=== PATIENT | male | born 1950 | race Caucasian/White ===

== ENCOUNTER → 2022-04-22 | Outpatient (CLI) | payer OTHER ==
[~2022-04-22] MED LIST: CELEBREX200 MG PO; HYDROCHLOROTHIA25 MG PO; LISINOPRIL40 MG PO; LOVASTATIN40 MG PO; LOW DOSE ASPIRI81 MG PO; METFORMIN HCL500 MG PO; METOPROLOL SUC100 MG PO; NEURONTIN300 MG PO; NORCO 5-325 TA1 EACH PO; XYZAL5 MG PO
[2022-04-22 09:56] LABS: HEMOGLOBIN 14.3 gm/dl (14.0-17.5); RED BLOOD COUNT 4.88 M/UL (4.20-5.50); WHITE BLOOD COUNT 8.3 K/UL (4.5-11.0)
[2022-04-22 10:20] LABS: BUN/CREATININE RATIO 24 (0-10)
== END ==
LOC: OPSV2 08:00 → EDSTATUS 08:00 → OPSV2 08:39
PROVIDERS: Orthopaedic Surgery
DX: Z01.818 Encounter for other preprocedural examination (principal); M19.012 Primary osteoarthritis, left shoulder; I45.10 Unspecified right bundle-branch block; R94.31 Abnormal electrocardiogram [ECG] [EKG]
CPT/HCPCS: 36415; 71046; 80048; 83036; 85025; 85610; 85730; 93005

== ENCOUNTER → 2022-04-23 | Outpatient (CLI) | payer OTHER | LOC: KOH-I 08:24 | DX: Z01.818 Encounter for other preprocedural examination (principal); M19.012 Primary osteoarthritis, left shoulder | CPT/HCPCS: 73200 ==

== ENCOUNTER → 2022-05-05 | Day surgery (SDC) | payer OTHER ==
[~2022-05-05] VITALS: Ht 180.3 cm; Wt 111.6 kg
[~2022-05-05] MED LIST changes: +CYCLOBENZAPRINE10 MG PO; +OXYCODON-ACETA1 EAC1 PO; +ZOFRAN ODT 4 MG4 MG GT
== END | disposition home or self-care (01) ==
LOC: OR 06:56
DX: M19.012 Primary osteoarthritis, left shoulder (principal); M25.712 Osteophyte, left shoulder; I10 Essential (primary) hypertension; E78.5 Hyperlipidemia, unspecified; E11.9 Type 2 diabetes mellitus without complications; Z79.82 Long term (current) use of aspirin
CPT/HCPCS: 73020; 82962; 97161; 97166; C1713; C1776; J0690; J1100; J2250; J2704; J2710; J2795; J3010; J3370